=== PATIENT | male | born 1990 | race Caucasian/White ===

== ENCOUNTER 2017-01-05 06:31 | Inpatient (IN) | payer OTHER ==
[~2017-01-05] VITALS: Ht 185.4 cm; Wt 109.9 kg
[2017-01-05 07:01] LABS: BASOPHIL COUNT 0.1 K/uL (0-0.1); EOSINOPHIL (%) 3.9 % (0-5); EOSINOPHIL COUNT 0.4 K/uL (0-0.3); HEMATOCRIT 42.2 % (38.0-50.0); IMMATURE GRANULOCYTE (%) 1.4 % (0.0-0.7); IMMATURE GRANULOCYTE COUNT 0.2 K/uL; INSTRUMENT ABS NEUTROPHIL CT 6.7 K/uL; LYMPHOCYTE COUNT 2.9 K/uL (1.0-2.8); MCH 29.2 PG (29.0-34.0); MCHC 33.9 G/DL (30.0-36.0); MCV 86.3 FL (86-99); MEAN PLAT.VOLUME 10.7 uM^3 (9.0-12.4); MONOCYTE (%) 5.9 % (3-12); MONOCYTE COUNT 0.7 K/uL (0-0.8); NEUTROPHIL (%) 61.7 % (45-76); NEUTROPHIL COUNT 6.7 K/uL (1.8-6.4); PLATELET COUNT 250 K/uL (156-360); RBC DIS.WIDTH-CV 12.6 % (11.8-14.6); RBC DIS.WIDTH-SD 39.4 % (39-53); RED BLOOD COUNT 4.89 M/uL (4.00-5.50); WHITE BLOOD COUNT 10.9 K/uL (4.1-10.2)
[2017-01-05 07:22] LABS: AMYLASE 30 IU/L (1-118); ANION GAP 13 MEQ/L (2-14); CHLORIDE 102 MEQ/L (99-109); SAMPLE HEMOLYSIS CHECK 0; SAMPLE ICTERIC CHECK 0; SAMPLE LIPEMIA CHECK 0; SODIUM 138 MEQ/L (136-147)
[2017-01-05 07:28] LABS: GFR ESTIMATE (CALCULATED) > 59 mL/min/; GLUCOSE 94 mg/dL (70-99); LIPASE 13 U/L (1.0-51.0); SERUM ETHYL ALCOHOL 100 mg/dL; UREA NITROGEN (BUN) 16 mg/dL (9-23)
[2017-01-05] MEDS ORDERED: ACID CONTROL150 MG PO (10:18)
[2017-01-05 11:00] VITALS: BP 119/69
[2017-01-05 11:11] VITALS: BP 119/69
[2017-01-05 17:12] VITALS: BP 110/66
[2017-01-05 19:49] VITALS: BP 175/85
[2017-01-05 23:46] VITALS: BP 125/75
[2017-01-06 04:27] VITALS: BP 128/71
[2017-01-06 08:01] VITALS: BP 138/86
[2017-01-06 11:28] VITALS: BP 120/67
[2017-01-06 15:16] VITALS: BP 109/62
[2017-01-06 20:04] VITALS: BP 118/70
[2017-01-06 23:43] VITALS: BP 113/71
[2017-01-07 03:19] VITALS: BP 120/69
[2017-01-07 08:05] VITALS: BP 130/69
[2017-01-07 11:39] VITALS: BP 135/78
[2017-01-07 15:09] VITALS: BP 116/70
[2017-01-07 19:08] VITALS: BP 125/74
[2017-01-07 23:50] VITALS: BP 118/63
[2017-01-08 03:15] VITALS: BP 125/67
[2017-01-08 08:01] VITALS: BP 139/83
[2017-01-08] MEDS ORDERED: OXYCODONE-APAP1 EACH PO (09:42)
[2017-01-08 11:34] VITALS: BP 138/90
== END 2017-01-08 13:00 | disposition home or self-care (01) | DRG 200 ==
LOC: TRA 06:31 → 3EAST 09:15 → EDOF 09:15 → ENRESERV 09:22 → 3EAST 10:30
PROVIDERS: Emergency Medicine
DX: S27.0XXA Traumatic pneumothorax, initial encounter (principal); S22.42XA Multiple fractures of ribs, left side, initial encounter for closed fracture; S42.009A Fracture of unspecified part of unspecified clavicle, initial encounter for closed fracture; S42.102A Fracture of unspecified part of scapula, left shoulder, initial encounter for closed fracture; W13.4XXA Fall from, out of or through window, initial encounter; Z68.31 Body mass index [BMI] 31.0-31.9, adult; W19.XXXA Unspecified fall, initial encounter; I10 Essential (primary) hypertension; J44.9 Chronic obstructive pulmonary disease, unspecified
CPT/HCPCS: 70450; 71020; 71260; 72125; 72129; 72132; 73030; 73130; 74177; 80048; 81003; 82150; 83690; 85025; 86850; 86900; 86901; 99281; 99285; G0480; J1170; J1650; J1885; J2270; J2405

== ENCOUNTER 2017-01-24 19:13 | Emergency (ER) | payer OTHER ==
[~2017-01-24] VITALS: Ht 185.4 cm; Wt 112.2 kg
[~2017-01-24 19:13] MED LIST: ACID CONTROL150 MG PO; OXYCODONE-APAP1 EACH PO
[2017-01-24 19:52] VITALS: BP 145/96
[2017-01-24 21:13] LABS: HEMATOCRIT 39.6 % (38.0-50.0); MCH 29.2 PG (29.0-34.0); MCHC 33.8 G/DL (30.0-36.0); MCV 86.3 FL (86-99); MEAN PLAT.VOLUME 10.2 uM^3 (9.0-12.4); PLATELET COUNT 271 K/uL (156-360); RBC DIS.WIDTH-CV 12.5 % (11.8-14.6); RED BLOOD COUNT 4.59 M/uL (4.00-5.50); WHITE BLOOD COUNT 9.5 K/uL (4.1-10.2)
[2017-01-24 21:25] LABS: CHLORIDE 101 mEq/L (99-109); POTASSIUM 3.9 mEq/L (3.7-5.4); SODIUM 137 mEq/L (136-147)
[2017-01-24 21:27] LABS: GLUCOSE 100 mg/dL (70-99)
[2017-01-24 21:28] LABS: ANION GAP 12 MEQ/L (2-14)
[2017-01-24 21:29] LABS: TOTAL BILIRUBIN 0.5 mg/dL (0.0-1.0)
[2017-01-24 21:31] LABS: ALKALINE PHOSPHATASE 131 IU/L (3-129); GFR ESTIMATE (CALCULATED) > 59 mL/min/
[2017-01-24 21:33] LABS: UREA NITROGEN (BUN) 10 mg/dL (9-23)
[2017-01-24 21:34] LABS: SALICYLATE < 5.0 MG/DL (15-30)
== END 2017-01-24 22:26 | disposition left against medical advice (07) ==
LOC: EME 19:13
DX: T39.1X1A Poisoning by 4-Aminophenol derivatives, accidental (unintentional), initial encounter (principal); K92.0 Hematemesis; Z53.21 Procedure and treatment not carried out due to patient leaving prior to being seen by health care provider
CPT/HCPCS: 80053; 81003; 85027; G0480

== ENCOUNTER 2017-01-25 10:53 | Emergency (ER) | payer OTHER ==
[~2017-01-25] VITALS: Ht 185.4 cm; Wt 112.5 kg
[2017-01-25 13:25] LABS: BASOPHIL COUNT 0.1 K/uL (0-0.1); EOSINOPHIL (%) 16.6 % (0-5); EOSINOPHIL COUNT 1.5 K/uL (0-0.3); HEMATOCRIT 40.4 % (38.0-50.0); IMMATURE GRANULOCYTE (%) 0.6 % (0.0-0.7); IMMATURE GRANULOCYTE COUNT 0.1 K/uL; INSTRUMENT ABS NEUTROPHIL CT 5.1 K/uL; LYMPHOCYTE COUNT 1.5 K/uL (1.0-2.8); MCH 29.1 PG (29.0-34.0); MCHC 34.2 G/DL (30.0-36.0); MCV 85.2 FL (86-99); MEAN PLAT.VOLUME 10.7 uM^3 (9.0-12.4); MONOCYTE (%) 7.2 % (3-12); MONOCYTE COUNT 0.6 K/uL (0-0.8); NEUTROPHIL (%) 58.4 % (45-76); NEUTROPHIL COUNT 5.1 K/uL (1.8-6.4); PLATELET COUNT 280 K/uL (156-360); RBC DIS.WIDTH-CV 12.3 % (11.8-14.6); RBC DIS.WIDTH-SD 38.2 % (39-53); RED BLOOD COUNT 4.74 M/uL (4.00-5.50); WHITE BLOOD COUNT 8.8 K/uL (4.1-10.2)
[2017-01-25 13:35] LABS: CHLORIDE 105 mEq/L (99-109); POTASSIUM 3.9 mEq/L (3.7-5.4); SODIUM 141 mEq/L (136-147)
[2017-01-25 13:37] LABS: GLUCOSE 112 mg/dL (70-99)
[2017-01-25 13:38] LABS: ANION GAP 12 MEQ/L (2-14)
[2017-01-25 13:39] LABS: TOTAL BILIRUBIN 0.2 mg/dL (0.0-1.0)
[2017-01-25 13:40] LABS: ALKALINE PHOSPHATASE 128 IU/L (3-129)
[2017-01-25 13:41] LABS: GFR ESTIMATE (CALCULATED) > 59 mL/min/
[2017-01-25 13:42] LABS: UREA NITROGEN (BUN) 12 mg/dL (9-23)
[2017-01-25 14:01] LABS: PTT 30.3 SEC (25-37)
[2017-01-25 14:13] LABS: INTER. NORMALIZED RATIO 1.1; PROTHROMBIN TIME 11.6 SEC (10.2-12.9)
[2017-01-25 15:02] VITALS: BP 136/83
== END 2017-01-25 15:02 | disposition home or self-care (01) ==
LOC: EME 10:53
PROVIDERS: Physician Assistant
DX: R11.10 Vomiting, unspecified (principal); K21.9 Gastro-esophageal reflux disease without esophagitis
CPT/HCPCS: 80053; 85025; 85610; 85730; 99281; 99285; G0480

== ENCOUNTER 2017-10-05 09:28 | Emergency (ER) | payer OTHER ==
[~2017-10-05] VITALS: Ht 185.4 cm; Wt 102.1 kg
[2017-10-05 10:05] LABS: BASOPHIL (%) 0.4 % (0-1); EOSINOPHIL COUNT 0.1 K/uL (0-0.3); HEMATOCRIT 39.2 % (38.0-50.0); HEMOGLOBIN 13.8 G/DL (12.5-16.6); IMMATURE GRANULOCYTE (%) 0.4 % (0.0-0.7); LYMPHOCYTE (%) 12.4 % (15-42); LYMPHOCYTE COUNT 1.4 K/uL (1.0-2.8); MCH 30.7 PG (29.0-34.0); MCHC 35.2 G/DL (30.0-36.0); MCV 87.3 FL (86-99); MONOCYTE (%) 7.4 % (3-12); MONOCYTE COUNT 0.8 K/uL (0-0.8); NEUTROPHIL (%) 78.4 % (45-76); NEUTROPHIL COUNT 8.9 K/uL (1.8-6.4); PLATELET COUNT 210 K/uL (156-360); RBC DIS.WIDTH-CV 11.9 % (11.8-14.6); RBC DIS.WIDTH-SD 38.5 % (39-53); RED BLOOD COUNT 4.49 M/uL (4.00-5.50); WHITE BLOOD COUNT 11.4 K/uL (4.1-10.2)
[2017-10-05 10:26] LABS: CHLORIDE 94 mEq/L (99-109); POTASSIUM 4.1 mEq/L (3.7-5.4); SODIUM 135 mEq/L (136-147)
[2017-10-05 10:28] LABS: GLUCOSE 98 mg/dL (70-99)
[2017-10-05 10:29] LABS: APPEARANCE CLEAR ((CLEAR)); BILIRUBIN NEGATIVE; BLOOD NEGATIVE; COLOR YELLOW ((YELLOW)); GLUCOSE (STRIP) NEGATIVE; KETONES NEGATIVE; LEUKOCYTES NEGATIVE; NITRITE NEGATIVE; PROTEIN (STRIP) NEGATIVE; SPECIFIC GRAVITY 1.026 (1.000-1.030); UROBILINOGEN 0.2 MG/DL (0.2-1.0)
[2017-10-05 10:31] LABS: SERUM ETHYL ALCOHOL < 10 mg/dL
[2017-10-05 10:32] LABS: CREATININE 0.8 mg/dL (0.6-1.3); GFR ESTIMATE (CALCULATED) > 59 mL/min/ (58.99-99999)
[2017-10-05 10:33] LABS: UREA NITROGEN (BUN) 17 mg/dL (9-23)
[2017-10-05 10:40] LABS: AMPHETAMINE NEGATIVE (500 ng/mL); BARBITURATES NEGATIVE (200 ng/mL); BENZODIAZEPINES NEGATIVE (150 ng/mL); BUPRENORPHINE NEGATIVE (10 ng/mL); COCAINE NEGATIVE (150 ng/mL); METHADONE NEGATIVE (200 ng/mL); METHAMPHETAMINE NEGATIVE (500 ng/mL); OPIATES (MORPHINE) NEGATIVE (100 ng/mL); OXYCODONE NEGATIVE (100 ng/mL); PHENCYCLIDINE NEGATIVE (25 ng/mL); PROPOXYPHENE NEGATIVE (300 ng/mL); THC CANNABINOIDS NEGATIVE (50 ng/mL); TRICYCLIC ANTIDEPRESSANTS NEGATIVE (300 ng/mL)
[2017-10-05 11:25] VITALS: BP 125/78
== END 2017-10-05 11:28 | disposition home or self-care (01) ==
LOC: EME 09:28
PROVIDERS: Emergency Medicine
DX: F11.10 Opioid abuse, uncomplicated (principal); F32.9 Major depressive disorder, single episode, unspecified; F41.9 Anxiety disorder, unspecified; K21.9 Gastro-esophageal reflux disease without esophagitis
CPT/HCPCS: 80048; 81003; 85025; 90839; 99281; 99284; G0480